=== PATIENT | male | born 1965 | race African-American/Black ===

== ENCOUNTER 2021-05-22 09:27 | Emergency (ER) | payer MEDICAID ==
[~2021-05-22] VITALS: Ht 172.7 cm; Wt 72.6 kg
[2021-05-22] MEDS ORDERED: QUET25TA PO (09:40)
--- NOTE | 2021-05-22 09:46 | NUR ---
Dr Rivera at the bedside for MSE.
--- NOTE | 2021-05-22 09:58 | NUR ---
PT out of ER for Ct/xray.
[2021-05-22] MEDS ORDERED: HYDROCODONE/APAP 5-325MG TABLET PO ONE (10:00)
[2021-05-22] MEDS ORDERED: HYDROCODONE/APAP 5-325MG TABLET ONE (10:02)
--- NOTE | 2021-05-22 10:20 | NUR ---
Pt back from Ct, resting in bed.
[2021-05-22] MEDS ORDERED: HYDR-4209 PO (11:10)
[2021-05-22 11:20] VITALS: BP 132/78
--- NOTE | 2021-05-22 11:20 | NUR ---
Crutches dispensed. Pt instructed on proper use of crutches. Patient able to demonstrate correct use of crutches.
--- NOTE | 2021-05-22 11:21 | NUR ---
Patient discharged to home in stable condition. Written and verbal after care instructions given. Patient verbalizes understanding of instructions. Stressed follow up or return to ER for worsening s/s.
== END 2021-05-22 11:21 | disposition home or self-care (01) ==
LOC: ER 09:27
DX: S12.200D Unspecified displaced fracture of third cervical vertebra, subsequent encounter for fracture with routine healing (principal); S82.832D Other fracture of upper and lower end of left fibula, subsequent encounter for closed fracture with routine healing; V03.10XD Pedestrian on foot injured in collision with car, pick-up truck or van in traffic accident, subsequent encounter; Z91.19 Patient's noncompliance with other medical treatment and regimen; I10 Essential (primary) hypertension
CPT/HCPCS: 72125; 73590; A4663

== ENCOUNTER 2021-05-24 10:53 | Emergency (ER) | payer MEDICAID ==
[~2021-05-24] VITALS: Ht 165.1 cm; Wt 65.8 kg
[~2021-05-24 10:53] MED LIST: HYDR-4209 PO; QUET25TA PO
--- NOTE | 2021-05-24 11:39 | NUR ---
resident went out to the lobby, pt stated" i will wait the doctor at the lobby," nurse explained the risk and benefit of waiting till the doctor saw him inside the er Bed, still insist.
--- NOTE | 2021-05-24 12:33 | NUR ---
pt seen by MD dr li at the [facility].
[2021-05-24] MEDS ORDERED: HYDR-3980 PO (12:34)
--- NOTE | 2021-05-24 12:41 | NUR ---
dcd instructions given to pt. who verbalized understanding and sitting in the waiting area. He was instructed as requested by physician to wait until prescription refill is been completed. prescription sent electronically by .
--- NOTE | 2021-05-24 13:18 | NUR ---
patient left, despite been intructed to wait until verification of prescription.
== END 2021-05-24 13:19 | disposition home or self-care (01) ==
LOC: ER 10:53
DX: M54.2 Cervicalgia (principal); Z76.0 Encounter for issue of repeat prescription; S12.200D Unspecified displaced fracture of third cervical vertebra, subsequent encounter for fracture with routine healing; S82.832D Other fracture of upper and lower end of left fibula, subsequent encounter for closed fracture with routine healing; V03.99XD Pedestrian with other conveyance injured in collision with car, pick-up truck or van, unspecified whether traffic or nontraffic accident, subsequent encounter; F29 Unspecified psychosis not due to a substance or known physiological condition; Z79.899 Other long term (current) drug therapy
CPT/HCPCS: A4663

== ENCOUNTER 2024-04-28 14:53 | Emergency (ER) | payer OTHER ==
[~2024-04-28] VITALS: Ht 172.7 cm; Wt 79.4 kg
[~2024-04-28 14:53] MED LIST changes: +HYDR-3980 PO
[2024-04-28] MEDS ORDERED: NITROFURANTOIN/NITROFURAN MAC 100 MG CAPSULE PO ONE (19:05)
[2024-04-28] MEDS ORDERED: ONDANSETRON ODT 4 MG TAB.RAPDIS ONE (19:06)
[2024-04-28] MEDS ORDERED: BISACODYL 5 MG TABLET.DR PO ONE (19:06)
[2024-04-28] MEDS ORDERED: MAGNESIUM HYDROXIDE 30 ML LIQUID UDC ONE (19:06)
[2024-04-28] MEDS ORDERED: HYDROCODONE/APAP 10-325 MG TABLET ONE (19:06)
[2024-04-28] MEDS: MAGNESIUM HYDROXIDE 30 ML LIQUID UDC PO ONE (19:11)
[2024-04-28] MEDS: NITROFURANTOIN/NITROFURAN MAC 100 MG CAPSULE PO ONE (19:11)
[2024-04-28] MEDS: BISACODYL 5 MG TABLET.DR PO ONE (19:11)
[2024-04-28] MEDS: HYDROCODONE/APAP 10-325 MG TABLET PO ONE (19:12)
[2024-04-28] MEDS: ONDANSETRON ODT 4 MG TAB.RAPDIS SL ONE (19:12)
[2024-04-28 19:29] LABS: *BILIRUBIN,URIN NEGATIVE (NEGATIVE); *BLOOD, URINE 2+ (NEGATIVE); *CLARITY,URINE CLEAR (CLEAR); *COLOR,URINE YELLOW (YELLOW); *KETONES,URINE NEGATIVE (NEGATIVE); *PROTEIN,URINE 2+ (NEGATIVE); *UROBILINOGEN,URINE 0.2 E.U./dl (NORMAL); LEUKOCYTE ESTERASE ,URINE NEGATIVE (NEGATIVE); NITRITE, URINE NEGATIVE (NEGATIVE); UGLUCOSE NEGATIVE (NEGATIVE)
[2024-04-28 19:30] LABS: WBC,URINE 0-3 /HPF (0-3)
[2024-04-28] MEDS ORDERED: IBUP-1490 PO (20:40)
[2024-04-28] MEDS ORDERED: ENAL2.5T39 PO (20:40)
[2024-04-28 21:02] VITALS: BP 145/90; O2SAT 98
== END 2024-04-28 21:03 | disposition home or self-care (01) ==
LOC: ER 14:53
DX: M79.604 Pain in right leg (principal); M79.605 Pain in left leg; R30.0 Dysuria; M54.9 Dorsalgia, unspecified; M54.2 Cervicalgia; G89.29 Other chronic pain; I10 Essential (primary) hypertension; F41.9 Anxiety disorder, unspecified; Z59.00 Homelessness unspecified; Z79.899 Other long term (current) drug therapy; Z88.8 Allergy status to other drugs, medicaments and biological substances; Z87.39 Personal history of other diseases of the musculoskeletal system and connective tissue
CPT/HCPCS: 87086; A4606; A4663; Q0162

== ENCOUNTER 2024-07-29 09:00 | Emergency (ER) | payer OTHER ==
[~2024-07-29] VITALS: Ht 172.7 cm; Wt 61.2 kg
[~2024-07-29 09:00] MED LIST changes: +ENAL2.5T39 PO; +IBUP-1490 PO
[2024-07-29 09:01] VITALS: O2SAT 98
[2024-07-29 09:59] LABS: BASOPHILS # (AUTO) 0.1 K/UL (0.0-0.2); BASOPHILS % (AUTO) 0.4 % (0.0-2.0); EOSINOPHILS % (AUTO) 0.1 % (0.0-7.0); HEMATOCRIT 23.4 % (36.7-47.1); HEMOGLOBIN 7.6 g/dL (12.5-16.3); LYMPHOCYTES # (AUTO) 0.9 K/uL (0.8-4.8); LYMPHOCYTES % (AUTO) 6.2 % (20.5-51.5); MEAN CORPUSCULAR HEMOGLOBIN 23.3 uug (23.8-33.4); MEAN CORPUSCULAR HGB CONC 32 g/dL (32.5-36.3); MEAN CORPUSCULAR VOLUME 71.9 fL (73.0-96.2); MONOCYTES # (AUTO) 1.3 K/uL (0.1-1.30); MONOCYTES % (AUTO) 9.2 % (0.0-11.0); NEUTROPHILS % (AUTO) 84.1 % (38.5-71.5); PLATELET COUNT (AUTO) 318 K/uL (152-348); RED BLOOD CELL COUNT(AUTO) 3.25 MIL/uL (4.06-5.63); RED CELL DISTRIBUTION WIDTH 19.5 % (12.1-16.2); WHITE BLOOD COUNT (AUTO) 14.2 K/uL (3.6-10.2)
[2024-07-29 10:03] LABS: DIFFERENTIAL COMMENT 1
[2024-07-29 10:06] LABS: CALCIUM 8.9 mg/dL (8.5-10.1); CARBON DIOXIDE 22 mmol/L (21-32); CHLORIDE 94 mmol/L (98-107); GLUCOSE 104 mg/dL (74-106); POTASSIUM 4.5 mmol/L (3.5-5.1); SODIUM SERUM 133 mmol/L (136-145)
[2024-07-29 10:08] LABS: CREATININE 9.8 mg/dL (0.6-1.3); UREA NITROGEN, BLOOD 99 mg/dL (7-18)
[2024-07-29 10:18] LABS: ALANINE AMINOTRANSFERASE 15 U/L (16-63); ALBUMIN 2.8 g/dL (3.4-5.0); ALKALINE PHOSPHATASE 108 U/L (50-136); ASPARTATE AMINOTRANSFERASE 39 U/L (15-37); BILIRUBIN,DIRECT 0.2 mg/dL (0.0-0.2); BILIRUBIN,TOTAL 0.4 mg/dL (0.2-1.0); LIPASE 32 U/L (16-77); TOTAL PROTEIN, SERUM 7.8 g/dL (6.4-8.2)
[2024-07-29 10:34] LABS: *BILIRUBIN,URIN NEGATIVE (NEGATIVE); *BLOOD, URINE 1+ (NEGATIVE); *CLARITY,URINE CLEAR (CLEAR); *COLOR,URINE YELLOW (YELLOW); *KETONES,URINE NEGATIVE (NEGATIVE); *PROTEIN,URINE 1+ (NEGATIVE); *UROBILINOGEN,URINE 0.2 E.U./dl (NORMAL); LEUKOCYTE ESTERASE ,URINE NEGATIVE (NEGATIVE); NITRITE, URINE NEGATIVE (NEGATIVE); PH,URINE 5.5 (5.0-8.0); UGLUCOSE NEGATIVE (NEGATIVE)
[2024-07-29] MEDS ORDERED: HYDROCODONE/APAP 10-325 MG TABLET ONE (10:46)
[2024-07-29] MEDS: HYDROCODONE/APAP 10-325 MG TABLET PO ONE (10:55)
[2024-07-29 11:00] LABS: BACTERIA,URINE FEW /HPF (NONE SEEN)
[2024-07-29 11:01] LABS: URINE AMORPHOUS URATE MODERATE /HPF
== END 2024-07-29 14:54 | disposition short-term general hospital (02) ==
LOC: ER 09:00
DX: N17.9 Acute kidney failure, unspecified (principal); N13.30 Unspecified hydronephrosis; M79.604 Pain in right leg; M79.605 Pain in left leg; R10.9 Unspecified abdominal pain; R12 Heartburn; F41.9 Anxiety disorder, unspecified; Z87.39 Personal history of other diseases of the musculoskeletal system and connective tissue; Z59.00 Homelessness unspecified; Z79.899 Other long term (current) drug therapy; Z88.8 Allergy status to other drugs, medicaments and biological substances
CPT/HCPCS: 36415; 71045; 76770; 83690; 84484; 85025; 85651; 85730; 87086; A4606; A4663; J7040

== ENCOUNTER 2024-08-06 09:26 | Emergency (ER) | payer OTHER ==
[~2024-08-06] VITALS: Ht 177.8 cm; Wt 79.4 kg
[2024-08-06] MEDS ORDERED: HYDR-3980 PO (10:57)
[2024-08-06 12:21] VITALS: BP 146/72; O2SAT 97
== END 2024-08-06 12:22 | disposition home or self-care (01) ==
LOC: ER 09:26
DX: C61 Malignant neoplasm of prostate (principal); Z76.0 Encounter for issue of repeat prescription; Z59.00 Homelessness unspecified; Z88.8 Allergy status to other drugs, medicaments and biological substances; Z79.899 Other long term (current) drug therapy
CPT/HCPCS: A4606; A4663